=== PATIENT | female | born 1990 | race Caucasian/White ===

== ENCOUNTER 2019-02-06 00:30 | Emergency (ER) | payer BC ==
[~2019-02-06] VITALS: Ht 157.5 cm; Wt 72.6 kg
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
[2019-02-06] MEDS ORDERED: HYDROCODONE/APAP 5-325MG TABLET PO ONE (01:00)
[2019-02-06] MEDS ORDERED: HYDROCODONE/APAP 5-325MG TABLET ONE (01:10)
--- NOTE | 2019-02-06 01:20 | NUR ---
Patient discharged to home in stable conditon. Written and verbal after care instructions given. Patient verbalizes understanding of instructions. ambulatory with stable gait. all belongings with pt
[2019-02-06 01:43] VITALS: BP 140/80
== END 2019-02-06 01:30 | disposition home or self-care (01) ==
LOC: ER 00:33
DX: S09.90XA Unspecified injury of head, initial encounter (principal); M54.5 Low back pain; Z88.1 Allergy status to other antibiotic agents; Z88.8 Allergy status to other drugs, medicaments and biological substances; V49.9XXA Car occupant (driver) (passenger) injured in unspecified traffic accident, initial encounter; Y93.89 Activity, other specified; Y92.89 Other specified places as the place of occurrence of the external cause; Y99.8 Other external cause status
CPT/HCPCS: A4663